=== PATIENT | female | born 1990 | race Caucasian/White ===

== ENCOUNTER → 2018-05-22 19:45 | Outpatient (CLI) | payer OTHER, SELFPAY ==
[2018-05-22 21:35] LABS: Chlamydia Trachomatis by PCR Negative (Negative); Neisserai gonorrhoeae by PCR Negative (Negative); Probe Check PASS; Sample Adequacy Control PASS; Specimen Processing Control PASS
== END ==
PROVIDERS: Referring Provider Nurse Practitioner Women's Health; Visit Provider Nurse Practitioner Women's Health
DX: N76.0 Acute vaginitis (principal); R30.0 Dysuria
CPT/HCPCS: 87070; 87077; 87086; 87106; 87205; 87491; 87591

== ENCOUNTER → 2018-10-14 07:30 | Outpatient (CLI) | payer OTHER, SELFPAY ==
[2018-10-14 09:05] LABS: Anion Gap 6 (5-15); BUN 12 mg/dL (7-18); BUN/Creat Ratio 14.9 RATIO (10-20); Calcium,Total 8.7 mg/dL (8.5-10.1); Chloride 109 mmol/L (98-107); Cholesterol 139 mg/dL (200); Creatinine, Serum 0.81 mg/dL (0.55-1.02); EST Glomerular Filtration Rate 91 mL/min (>60); Est Glom Filt Rate - Afr Amer 111 mL/min (>60); Glucose 87 mg/dL (74-106); High Density Lipoprotein 55 mg/dL; Potassium 3.6 mmol/L (3.5-5.1); Sodium Level 141 mmol/L (136-145); Thyroid Stim Hormone (TSH) 3.72 uIU/mL (0.358-3.74); Triglycerides 53 mg/dL; Very Low Density Lipoprotein 11 mg/dL (5-40)
== END ==
PROVIDERS: Family Provider Family Medicine; PCP Family Medicine; Referring Provider Family Medicine; Visit Provider Family Medicine
DX: Z00.00 Encounter for general adult medical examination without abnormal findings (principal)
CPT/HCPCS: 36415; 80048; 80061; 84443

== ENCOUNTER → 2019-04-25 16:43 | Outpatient (CLI) | payer OTHER, SELFPAY ==
[2019-05-01 16:18] LABS: HPV Reflexed? NOT INDICATED
== END ==
PROVIDERS: Family Provider Family Medicine; PCP Family Medicine; Referring Provider Nurse Practitioner Women's Health; Visit Provider Nurse Practitioner Women's Health
DX: Z12.4 Encounter for screening for malignant neoplasm of cervix (principal)
CPT/HCPCS: 88175; G0145

== ENCOUNTER 2021-10-28 17:10 | Outpatient (CLI) | payer OTHER, SELFPAY ==
[2021-10-28 17:36] LABS: Amphetamine Urine VISTA NEGATIVE (<1000 ng/mL); Barbiturate Urine VISTA NEGATIVE (< 200 ng/mL); Benzodiazepine Urine VISTA NEGATIVE (< 200 ng/mL); Cocaine Urine VISTA NEGATIVE (< 300 ng/mL); Ecstacy Urine VISTA NEGATIVE (< 500 ng/mL); Methadone Urine VISTA NEGATIVE (< 300 ng/mL); PCP Urine VISTA NEGATIVE (< 25 ng/mL); THC Urine VISTA NEGATIVE (< 50 ng/mL); Vista UDS pH Range 6
[2021-10-30 22:07] LABS: Chlamydia By Nucleic Acid AMP Negative (Negative)
[2021-10-30 22:26] LABS: Gonococcus By Nucleic Acid AMP Negative (Negative)
[2021-11-04 09:32] LABS: HPV Reflexed? NOT INDICATED
== END 2021-10-28 23:59 | disposition home or self-care (01) ==
PROVIDERS: PCP Family Medicine; Visit Provider Obstetrics & Gynecology
DX: Z34.00 Encounter for supervision of normal first pregnancy, unspecified trimester (principal)
CPT/HCPCS: 80307; 87086; 87491; 87591; 88175; G0145

== ENCOUNTER 2021-11-07 08:58 | Outpatient (CLI) | payer OTHER, SELFPAY ==
[2021-11-07 09:37] LABS: Absolute Lymphocyte Count 1.81 X10^3/uL (0.83-4.51); Basophil# 0.05 X10^3/uL; Basophil% 0.6 % (0-1); Eosinophils% 1.1 % (0-5); Hematocrit 38.9 % (37-47); Lymphocyte # 1.81 X10^3/ul (0.83-4.51); Lymphocyte % 20.7 % (19-41); Mean Corp Hgb Conc 33.4 g/dL (32-36); Mean Corpuscular Hgb 28.2 pg (27.0-32.0); Mean Corpuscular Volume 84.4 fL (81-99); Mean Platelet Vol. 9.9 fl (6.2-12.0); Monocyte# 0.75 X10^3/uL; Monocyte% 8.6 % (0-10); NRBC Flagged by Analyzer 0 % (0-5); Neutrophil # 6.01 X10^3/uL (2.7-7.7); Neutrophil % 68.8 % (47-70); Platelet Count 333 K/mm3 (150-450); RBC Distribution Width CV 14.5 % (11.6-14.6); RBC Distribution Width SD 43.9 fl (35.1-43.9); Red Blood Count 4.61 M/mm3 (4.2-5.4); White Blood Count 8.7 K/mm3 (4.4-11.0)
[2021-11-07 10:18] LABS: Thyroid Stim Hormone (TSH) 2.22 uIU/mL (0.358-3.74)
[2021-11-09 09:22] LABS: HIV - WCH Non-Reactive (Nonreactive); Hepatitis B Surface Antigen Non-Reactive (Nonreactive); Hepatitis C Antibody Non-Reactive (Nonreactive); Rubella IgG Reactive (Nonreactive); Syphilis Antibodies Non-reactive
== END 2021-11-07 23:59 | disposition home or self-care (01) ==
PROVIDERS: PCP Family Medicine; Visit Provider Obstetrics & Gynecology
DX: Z34.00 Encounter for supervision of normal first pregnancy, unspecified trimester (principal); R94.6 Abnormal results of thyroid function studies
CPT/HCPCS: 36415; 84443; 85025; 86703; 86762; 86780; 86803; 86850; 86900; 86901; 87340

== ENCOUNTER → 2021-12-25 | Outpatient (CLI) | payer OTHER, SELFPAY ==
--- NOTE | 2021-12-25 15:05 | US_ITS ---
EXAM: US FIRST TRIMESTER , TRANSABDOMINAL AND TRANSVAGINAL CLINICAL INDICATION: anatomy TECHNIQUE: Real-time transabdominal and transvaginal obstetrical ultrasound of the maternal pelvis and a first trimester with image documentation. Transvaginal imaging was used for better evaluation of the fetus and adnexa. This report was created using F[employer] report generation technology. COMPARISON: None. FINDINGS: GESTATION: There is an intrauterine gestation. The fetus is in the cephalic position. heart rate of 158 bpm. Gestational age 20 weeks 6 days. ANATOMY: Spine, diaphragm, extremities, stomach, kidneys, bladder, four-chamber heart and three-vessel cord were all visualized. CARMELITA: CARMELITA 05/08/2022. EFW: Estimated weight is 358 g. BPD: Biparietal diameter is 4.8 cm age 20 weeks 3 days, 26th percentile. HC: Head circumference is 17.8 cm age 20 weeks 1 day, 17th percentile. AC: Abdominal circumference is 15.3 cm age 20 weeks 3 days, 31st percentile. FL: Femur length is 3.4 cm age 20 weeks 3 days, 31st percentile. PLACENTA/AMNIOTIC FLUID: The placenta is anterior. UTERUS/CERVIX: The cervix measures 4.9 cm. No myometrial mass. OVARIES: Unremarkable. No mass. FREE FLUID: Largest pocket of fluid is 4.6 x 6.6 cm. US/OB Anatomy Scan IMPRESSION: Intrauterine gestation with an average ultrasound age of 20 weeks 1 day ultrasound estimated due date of 05/13/2022. heart rate is 158 bpm. Electronically Signed: Zack Gutierrez MD at 3:09 EDT ,
== END | disposition home or self-care (01) ==
PROVIDERS: PCP Family Medicine; Referring Provider Obstetrics & Gynecology; Visit Provider Obstetrics & Gynecology
DX: Z34.00 Encounter for supervision of normal first pregnancy, unspecified trimester (principal)
CPT/HCPCS: 76805; 76817

== ENCOUNTER → 2022-02-15 | Outpatient (CLI) | payer OTHER, SELFPAY ==
[2022-02-15 08:22] LABS: Absolute Lymphocyte Count 1.95 X10^3/uL (0.83-4.51); Absolute Neutrophil Count 6.9 X10^3/uL (2.0-7.7); Basophil# 0.05 X10^3/uL; Basophil% 0.5 % (0-1); Eosinophil# 0.27 X10^3/uL; Eosinophils% 2.7 % (0-5); Hematocrit 33.5 % (37-47); Hemoglobin 10.6 g/dL (12.0-15.0); Lymphocyte # 1.95 X10^3/ul (0.83-4.51); Lymphocyte % 19.7 % (19-41); Mean Corp Hgb Conc 31.6 g/dL (32-36); Mean Corpuscular Hgb 29.1 pg (27.0-32.0); Mean Platelet Vol. 9.6 fl (6.2-12.0); Monocyte# 0.74 X10^3/uL; Monocyte% 7.5 % (0-10); NRBC Flagged by Analyzer 0 % (0-5); Neutrophil # 6.86 X10^3/uL (2.7-7.7); Neutrophil % 69.1 % (47-70); Platelet Count 316 K/mm3 (150-450); RBC Distribution Width CV 14.6 % (11.6-14.6); Red Blood Count 3.64 M/mm3 (4.2-5.4); White Blood Count 9.9 K/mm3 (4.4-11.0)
[2022-02-15 08:54] LABS: Glucose Challenge Gest 1H 50g 117 mg/dL (70-140)
== END | disposition home or self-care (01) ==
LOC: LAB 07:47
PROVIDERS: PCP Family Medicine; Referring Provider Obstetrics & Gynecology; Visit Provider Obstetrics & Gynecology
DX: Z34.00 Encounter for supervision of normal first pregnancy, unspecified trimester (principal)
CPT/HCPCS: 36415; 82950; 85025

== ENCOUNTER → 2022-04-06 | Outpatient (CLI) | payer OTHER, SELFPAY ==
[2022-04-06 11:10] LABS: Absolute Lymphocyte Count 1.54 X10^3/uL (0.83-4.51); Absolute Neutrophil Count 6.7 X10^3/uL (2.0-7.7); Basophil# 0.04 X10^3/uL; Basophil% 0.4 % (0-1); Eosinophil# 0.11 X10^3/uL; Eosinophils% 1.2 % (0-5); Hematocrit 38.2 % (37-47); Hemoglobin 12.4 g/dL (12.0-15.0); Lymphocyte # 1.54 X10^3/ul (0.83-4.51); Lymphocyte % 16.6 % (19-41); Mean Corp Hgb Conc 32.5 g/dL (32-36); Mean Corpuscular Hgb 29.9 pg (27.0-32.0); Mean Platelet Vol. 10.2 fl (6.2-12.0); Monocyte# 0.87 X10^3/uL; Monocyte% 9.4 % (0-10); NRBC Flagged by Analyzer 0 % (0-5); Platelet Count 288 K/mm3 (150-450); RBC Distribution Width CV 14.6 % (11.6-14.6); RBC Distribution Width SD 49.1 fl (35.1-43.9); Red Blood Count 4.15 M/mm3 (4.2-5.4); White Blood Count 9.3 K/mm3 (4.4-11.0)
== END | disposition home or self-care (01) ==
LOC: LAB 09:48
PROVIDERS: PCP Family Medicine; Referring Provider Nurse Practitioner Women's Health; Visit Provider Nurse Practitioner Women's Health
DX: D64.9 Anemia, unspecified (principal)
CPT/HCPCS: 36415; 85025

== ENCOUNTER → 2022-04-16 | Outpatient (CLI) | payer OTHER, SELFPAY | END | disposition home or self-care (01) | LOC: LABSPEC 04-19 08:22 | PROVIDERS: PCP Family Medicine; Visit Provider Obstetrics & Gynecology | DX: Z34.00 Encounter for supervision of normal first pregnancy, unspecified trimester (principal) | CPT/HCPCS: 87081 ==

== ENCOUNTER 2022-05-19 19:00 | Inpatient (IN) | payer OTHER, SELFPAY ==
[2022-05-19 19:05] VITALS: BMI 26.9
[2022-05-19 19:16] VITALS: PULSE 101; O2SAT 96
[2022-05-19 19:21] VITALS: BP 111/75; PULSE 81; TEMP 36.3
[2022-05-19 19:22] VITALS: PULSE 78; O2SAT 96
[2022-05-19 19:56] LABS: Absolute Lymphocyte Count 1.66 X10^3/uL (0.83-4.51); Absolute Neutrophil Count 8.4 X10^3/uL (2.0-7.7); Basophil# 0.03 X10^3/uL; Basophil% 0.3 % (0-1); Eosinophil# 0.06 X10^3/uL; Eosinophils% 0.5 % (0-5); Hematocrit 38.9 % (37-47); Hemoglobin 13.1 g/dL (12.0-15.0); Lymphocyte # 1.66 X10^3/ul (0.83-4.51); Lymphocyte % 15.1 % (19-41); Mean Corp Hgb Conc 33.7 g/dL (32-36); Mean Corpuscular Hgb 29.8 pg (27.0-32.0); Mean Corpuscular Volume 88.4 fL (81-99); Mean Platelet Vol. 10.3 fl (6.2-12.0); Monocyte# 0.77 X10^3/uL; NRBC Flagged by Analyzer 0 % (0-5); Neutrophil # 8.41 X10^3/uL (2.7-7.7); Neutrophil % 76.6 % (47-70); Platelet Count 278 K/mm3 (150-450); RBC Distribution Width CV 13.2 % (11.6-14.6); RBC Distribution Width SD 42.7 fl (35.1-43.9)
[2022-05-19] MEDS: Lactated Ringers 1,000 ML 50 ML IV (20:40)
[2022-05-19] MEDS: LACTATED RINGERS 500 ML 999 ML IV (20:40)
[2022-05-19 21:23] VITALS: BP 109/69; PULSE 65; TEMP 35.9
[2022-05-19 21:24] VITALS: PULSE 66; O2SAT 98
[2022-05-19] MEDS: miSOPROStol 25 MCG TABLET PO (21:37)
[2022-05-20] VITALS (48 sets, daily range): BP systolic 85–129; BP diastolic 57–90; PULSE 34–127; RESP 16; TEMP 36.1–36.7; O2SAT 75–100
[2022-05-20] MEDS: miSOPROStol 50 MCG TABLET PO (02:03)
--- NOTE | 2022-05-20 07:42 | HP.PCM.OB_ITS ---
HPI - General General Date of Admission: 05/19/22 HPI Narrative RUTHIE OJEDA, is a 31 F who presents for IOL postdates no vb lof good fm no regular ctx Maternal Data Information CARMELITA Calculator Estimated Delivery Date Method Current WG Current Estimate 05/08/22 Ultrasound #1 41w 5d Other Estimates 05/18/22 LMP (Uncertain) 40w 2d PFSH PFSH Medical History Anemia Home Medications prenat.vits,jose,rnt-fyel-djagx 1 tab PO DAILY 10/19/21 [History Last Taken 05/19/22] iron 1 tablet DAILY anemia 05/19/22 [History Last Taken Unknown] Allergy/AdvReac Type Severity Reaction Status Date / Time No Known Allergies Allergy Verified 05/19/22 19:23 Family History Mother Ovarian cancer Thyroid disorder Surgical History [place] teeth extracted Social History adopted: No household members: spouse current occupational status: employed 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 pets and animals: No Smoking Status: Never smoker alcohol intake: never substance use type: does not use caffeine: Yes (rarely) what type of physical activity do you participate in: none seatbelt use: always do you feel safe at home: Yes additional social history: - [facility] 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 History 1 Elective abortions Hx Para 0 Spontaneous abortions Hx # Term Pregnancies Ectopic pregnancies Hx # Pregnancies Multiple births # of living children Visit Details Expected Delivery Route/Plan Labor Preferences- CB/BF classes: encouraged labor support person: Bryon labor intervention preferences: tub pain management options preferred: epidural if needed cut cord/dad catch: cord : yes PP control planned: discussed discussed possible routes of delivery and associated risks: [] special requests: [] Plans Covid status: unvaccinated Flu vaccine: unvaccinated Tdap vaccine: [] Rhogam: na LARC form signed: yes Problem list reviewed and updated with the most current plan of care details and appropriate orders placed. Relevant counseling for the gestational age provided. Continue routine care and follow up unless otherwise noted in visit notes/problem list details OB Flowsheet Initial Weight: 150 lb Date -?-?-?-?-?-?-?-?-?-?-?-?- EGA Weight BP Urine Prot -?-?-?-?-?-?-?-?-?-?-?-?- Glucose FHR FuHt Pres Dilation -?-?-?-?-?-?-?-?-?-?-?-?- Effaced St Visit Note 10/28/21 -?-?-?-?-?-?-?-?-?-?-?-?- 12w 4d 150 lb 8 oz (+8 oz) 120/80 -?-?-?-?-?-?-?-?-?-?-?-?- 176 -?-?-?-?-?-?-?-?-?-?-?-?- JV- CRL not cons istent with LMP> measuring 12 weeks 4 days CARMELITA 05/0811/27/21 -?-?-?-?-?-?-?-?-?-?-?-?- 16w 6d 154 lb (+4 lb) 102/80 -?-?-?-?-?-?-?-?-?-?-?-?- 150 -?-?-?-?-?-?-?-?-?-?-?-?- SM- no vb crampi ng 12/30/21 -?-?-?-?-?-?-?-?-?-?-?-?- 21w 4d 158 lb 4 oz (+8 lb 4 oz) 120/78 Negative -?-?-?-?-?-?-?-?-?-?-?--?- Negative 155 -?-?-?-?-?-?-?-?-?-?-?-?- JV- normal anato my scan from [facility]. anterior placenta. No complaints today. 01/25/22 -?-?-?-?-?-?-?-?-?--?-?-?- 25w 2d 164 lb 8 oz (+14 lb 8 oz) 110/72 Negative -?-?-?-?-?-?-?-?-?-?-?-?- Negative 150 25 -?-?-?-?-?-?-?-?-?-?-?-?- SM- no vb lof go od fm no regular ctx 02/15/22 -?-?-?-?-?-?-?-?-?-?-?-?- 28w 2d 170 lb 4 oz (+20 lb 4 oz) 114/60 Negative -?-?-?-?-?-?-?-?-?-?-?-?- Negative 152 28 -?-?-?-?-?-?-?-?-?-?-?-?- MH-No VB, LOF or CTX. Good FM. [facility], 28 wk labs. 03/03/22 -?-?-?-?-?-?-?-?-?-?-?-?- 30w 4d 169 lb (+19 lb) 111/73 Negative -?-?-?-?-?-?-?-?-?-?-?-?- Negative 145 30 -?-?-?-?-?-?-?-?-?-?-?-?- JV-no lof, vagin al bleeding, or dec fm. tdap done today. 03/19/22 -?-?-?-?-?-?-?-?-?-?-?-?- 32w 6d 169 lb 6 oz (+19 lb 6 oz) 119/66 Negative -?-?-?-?-?-?-?-?-?-?-?-?- Negative 155 31 Transverse -?-?-?-?-?-?-?-?-?-?-?-?- JV- no lof, vagi nal bleeding, or dec fm moving this weekend. 04/06/22 -?-?-?-?-?-?-?-?-?-?-?-?- 35w 3d 171 lb (+21 lb) 114/62 Negative -?-?-?-?-?-?-?-?-?-?-?-?- Negative 140 34 Transverse -?-?--?-?-?-?-?-?-?-?-?-?- MH-No Vb, LOF. G ood FM. CBC today. 04/16/22 -?-?-?-?-?-?-?-?-?-?-?-?- 36w 6d 170 lb (+20 lb) 110/70 Trace -?-?-?-?-?-?-?-?-?-?-?-?- Negative 145 37 Cephalic 0 -?-?-?-?-?-?-?-?-?-?-?-?- SM- no vb lof go od fm no regular ctx 04/23/22 -?-?-?-?-?-?-?-?-?-?-?-?- 37w 6d 172 lb 8 oz (+22 lb 8 oz) 122/76 Negative -?-?-?-?-?-?-?-?-?-?-?-?- Negative 135 37 Cephalic 0 -?-?-?-?-?-?-?-?-?-?-?-?- JV- pt wants to know if can go to a wedding 2 hrs away next weekend. will play by ear. no lof, vaginal bleeding, or dec fm. 04/29/22 -?-?-?-?-?-?-?-?-?-?-?-?- 38w 5d 173 lb 6 oz (+23 lb 6 oz) 115/73 Negative -?-?-?-?-?-?-?-?-?-?-?-?- Negative 145 37 Cephalic 0 -?-?-?-?-?-?-?-?-?-?-?-?- JV- no lof, vagi nal bleeding, or dec fm. going to weddding 2 hrs away. labor precautions discussed. 05/07/22 -?-?-?-?-?-?-?-?-?-?-?-?- 39w 6d 172 lb 8 oz (+22 lb 8 oz) 115/75 Negative -?-?-?-?-?-?-?-?-?-?-?-?- Negative 155 38 Cephalic 0 -?-?-?-?-?-?-?-?-?-?-?-?- JV- no lof, vagi nal bleeding, or dec fm. pt wants to wait as long as possible for IOL. L&D has next tuesday available for PM induction. 05/14/22 -?-?-?-?-?-?-?-?-?-?-?-?- 40w 6d 174 lb (+24 lb) 124/77 Negative -?-?-?-?-?-?-?-?-?-?-?-?- Negative 150 39 Cephalic 0 -?-?-?-?-?-?-?-?-?-?-?-?- JV- NST reactive . iol set for tuesday. labor precautions discussed. 05/19/22 -?-?-?-?-?-?-?-?-?-?-?-?- 41w 4d 171 lb 11.841 oz (+21 lb 11.841 oz) 111/75 109/69 104/71 114/70 -?-?-?-?-?-?-?-?-?-?-?-?- -?-?-?-?-?-?-?-?-?-?-?-?- NST FHR Rate Baby A Baseline: 130 Variability:: Moderate Accelerations:: 15 x 15 Decelerations:: None NST Reactive:: Yes FHR Category:: Category I Uterine Activity:: irregular ROS Constitutional Constitutional: Reports systems reviewed and no addt'l complaints, except as documented Eyes Eyes: Denies change in vision ENT HEENT: Reports systems reviewed and no addt'l complaints, except as documented; Denies headache(s) Cardiovascular Cardiovascular: Reports systems reviewed and no addt'l complaints, except as documented; Denies chest pain or dyspnea Respiratory/Chest Respiratory/Chest: Reports systems reviewed and no addt'l complaints, except as documented Gastrointestinal Gastrointestinal: Reports systems reviewed and no addt'l complaints, except as documented; Denies abdominal pain Genitourinary Genitourinary: Reports systems reviewed and no addt'l complaints, except as documented, contractions Details: present (irregular) and movement Details: present; Denies dysuria or genital lesions Musculoskeletal Musculoskeletal: Reports systems reviewed and no addt'l complaints, except as documented Neurologic Neurologic: Reports systems reviewed and no addt'l complaints, except as documented Endocrine Endocrinology: Reports systems reviewed and no addt'l complaints, except as documented Vital Signs Vital Signs Vital Signs: 05/19/22 19:16 05/19/22 19:16 05/19/22 19:21 Temperature Temperature Source Pulse Rate 101 H Blood Pressure 111/75 BP Systolic 111 BP Diastolic 75 Pulse Ox 96 05/19/22 19:21 05/19/22 19:22 05/19/22 19:22 Temperature Temperature Source Pulse Rate 81 78 Blood Pressure BP Systolic BP Diastolic Pulse Ox 96 05/19/22 21:23 05/19/22 21:23 05/19/22 21:24 Temperature Temperature Source Pulse Rate 65 66 Blood Pressure 109/69 BP Systolic 109 BP Diastolic 69 Pulse Ox 05/19/22 21:24 05/19/22 21:23 05/19/22 21:23 Temperature 96.7 F L Temperature Source Temporal Pulse Rate Blood Pressure BP Systolic BP Diastolic Pulse Ox 98 05/19/22 19:21 05/19/22 19:21 05/20/22 01:29 Temperature 97.3 F L Temperature Source Temporal Pulse Rate Blood Pressure 104/71 BP Systolic 104 BP Diastolic 71 Pulse Ox 05/20/22 01:29 05/20/22 01:29 05/20/22 01:29 Temperature 97.0 F L Temperature Source Temporal Pulse Rate 102 H Blood Pressure BP Systolic BP Diastolic Pulse Ox 05/20/22 05:18 05/20/22 05:18 05/20/22 05:18 Temperature Temperature Source Temporal Pulse Rate 64 Blood Pressure 114/70 BP Systolic 114 BP Diastolic 70 Pulse Ox 05/20/22 05:18 Temperature 97.0 F L Temperature Source Pulse Rate Blood Pressure BP Systolic BP Diastolic Pulse Ox Weight Weight: 171 lb 11.841 oz Body Mass Index (BMI) 26.9 Physical Exam Const alert, oriented x3, no apparent distress and healthy appearing HEENT normocephalic and moist oral mucous membranes Head and Scalp: atraumatic Neck full ROM, no lymphadenopathy, supple and thyroid normal General: trachea midline Lymph Lymphatic: no lymphadenopathy noted Chest inspection of chest normal Resp normal respiratory effort Cardio regular rate GI normal to inspection, nondistended, normoactive bowel sounds, soft to palpation and non-tender Inspection: gravid external exam normal Manual OB Exam: estimated gestational size appropriate, presentation cephalic, dilated, effaced and station Extremity normal to inspection General Extremity: Negative for edema Skin no rashes or lesions noted Neuro no focal motor deficits and deep tendon reflexes 2+ bilaterally Motor Exam: strength 5/5 throughout and clonus absent Psych mental status grossly normal Labs Labs Labs: Blood Type A POSITIVE Antibody Screen NEGATIVE Hct 38.9 % (37-47) Hgb 13.1 g/dL (12.0-15.0) Obstetrics US Syphilis Total Ab Non-reactive Rubella IgG Antibody Reactive (Nonreactive) Hep Bs Antigen Non-Reactive (Nonreactive) Chlamydia DNA (MENG) Negative (Negative) Neisseria gonorrhoeae DNA (MENG) Negative (Negative) HIV 1&2 Antibody Non-Reactive (Nonreactive) Glucose 1 Hr 50 gm 117 mg/dL (70-140) Miscellaneous Test Assessment & Plan (1) Anemia: COMMENT: iron supplement (2) : QUALIFIERS: Weeks of gestation: 40 weeks Qualified Code(s): Z3A .40 - 40 weeks gestation of COMMENT: GBS neg. anatomy nl, Discussed ntd, genetic, and carrier screen. Pt has declined testing (3) Supervision of normal first : COMMENT: PRR CARMELITA: 05/08/22 girl Spouse: Rodrigo Plan for IOL between 41-42 weeks cytotec induction. (on for tuesday pm at 7:00 05/19) (4) Post term at 41 weeks gestation: (5) Encounter for induction of labor: PLAN: Plan Patient presents IOL, plan management for with cytotec and now pit and fb placed. Pain management: plans epidural. GBS negative. Management of any complications: none I have reviewed the [facility] and made any clinically relevant updates.
[2022-05-20] MEDS: 0.9% Normal Saline Single 100 ML IV.SOLN. INTRA-UTER (07:50)
[2022-05-20] MEDS: Oxytocin 15 Units/NS 250ml 15 UNITS/250 ML IV.SOLN 2 UNITS IV (10:29)
[2022-05-20] MEDS: LACTATED RINGERS 500 ML 999 ML IV (14:40)
[2022-05-20] MEDS: fentaNYL-bupivacaine (epidural) 100 ML BAG EPIDURAL (15:10)
[2022-05-20] MEDS: Lactated Ringers 1,000 ML 50 ML IV (17:58)
--- NOTE | 2022-05-20 18:23 | EX.PCM.OBRPT ---
Assessment & Plan (1) Encounter for induction of labor: (2) Post term at 41 weeks gestation: (3) : QUALIFIERS: Weeks of gestation: 40 weeks Qualified Code(s): Z3A.40 - 40 weeks gestation of COMMENT: GBS neg. anatomy nl, Discussed ntd, genetic, and carrier screen. Pt has declined testing (4) Supervision of normal first : COMMENT: PRR CARMELITA: 05/08/[birth year] girl Spouse: Rodrigo Plan for IOL between 41-42 weeks cytotec induction. (on for tuesday pm at 7:00 05/19) (5) Anemia: COMMENT: iron supplement (6) Vaginal delivery: COMMENT: SM IOL 41 postdates girl Shawna Maternal Data Information CARMELITA Calculator Estimated Delivery Date Method Current WG Current Estimate 05/08/22 Ultrasound #1 41w 5d Other Estimates 05/18/22 LMP (Uncertain) 40w 2d Vaginal Delivery Operative Information Date of Procedure: 05/20/22 Pre-Operative Diagnosis: IOL postdates Post-Operative Diagnosis: same Surgery / Procedure Performed: Spontaneous Vaginal Delivery Type of Anesthesia: Epidural Special Medications: none Estimated Blood Loss: 300 Fluids Replaced: crystalloid Findings Description of Procedure: Patient began pushing and delivered the head in the ALEKSANDRA presentation. The head was delivered atraumatically nc x 1 delivered through. The anterior and posterior shoulders delivered without complication followed by the rest of the and the infant was placed on the maternal abdomen. Delayed cord clamping was employed for approximately 60 seconds. Cord was clamped and cut and gentle traction was applied to the cord and the placenta delivered spontaneously immediately following it was noted to be intact with three-vessel cord. The perineum and vagina were inspected and noted to have a second degree laceration repaired in the usual fashion with 3-0 rapide. EBL was 300. Patient and tolerated delivery well. Presentation: ALEKSANDRA Amniotic Membrane Rupture Type: Spontaneous Amniotic Fluid Description: Clear Placental Delivery Description: Spontaneous Placenta Disposition: [facility] Cord Vessel Description: 3 Vessels Cord Entanglement: Around neck x 1, loose Infant A Gender: Female Delayed Cord Clamping: Yes Post Vaginal Delivery Medications Given After Delivery: IV Pitocin Episiotomy Description: None Laceration: Perineal Extension/lac and 2nd degree Complication Complications: None Procedures Urinary/Genital [id number]: [id number] Vaginal Delivery [facility]
--- NOTE | 2022-05-20 18:28 | DCINST_ITS ---
Discharge Instructions Diet Discharge Diet: No restrictions Activity Discharge Activity: Return to Normal Activity, May Drive, May Shower and May Take a Tub Bath (in 4 weeks) May resume sexual activity in: 6-8 weeks (after seen by OB provider) Weight Bearing Status: Full weight bearing Lifting Restrictions: none Dressing / Incision Call your doctor if you observe: Fever of 101 or Higher, Inability to urinate, Using more than 1 pad per hour (for more than 2 hours in a row or more), Shortness of breath, Dizziness, Chest pain and - (headache not controlled with tylenol, change in vision) Follow Up Care When: in 6 weeks for visit, call the office to make the appointment. If you had elevated blood pressures call the office to be seen within 1 week. Test Results: Test results from this visit will be discussed in further detail at your follow- up appointment, if applicable. Discharge Plan Admission Admit Date/Time: 05/19/22 19:00 Attending Provider: Loretta Chand Primary Care Provider: Vinny Cantu Discharge Orders/Prescriptions Prescriptions: No Action prenat.vits,jose,eqd-jejc-maivb Tablet 1 tab PO DAILY iron 1 tablet DAILY Referrals / Follow Up: Vinny Cantu MD [Primary Care Provider] - Disposition Disposition (needs filled in before D/C Order can be placed): Home, Self Care
[2022-05-20] MEDS: Oxytocin 15 Units/NS 250ml 15 UNITS/250 ML IV.SOLN 83 UNITS IV (19:28)
[2022-05-20] MEDS: 0.9% Saline Lock 10 ML Syringe IV (20:24)
[2022-05-20] MEDS: Acetaminophen 500 MG Tablet 1000 MG PO (20:25)
[2022-05-20] MEDS: Benzocaine/Lanolin/Aloe Vera 1 SPRAY EACH TOPICAL (20:25)
--- NOTE | 2022-05-20 21:00 | NURSING ---
correa cath removed at delivery time of 1741. this RN was informed of this during bedside report. pt aware of need for two voids following catheter removal.
[2022-05-21 04:03] VITALS: BP 125/79; PULSE 78; RESP 16; TEMP 36.7
[2022-05-21] MEDS: Naproxen 500 MG Tablet PO (06:36)
--- NOTE | 2022-05-21 08:09 | PCM.PN.OB ---
Subjective Subjective Patient doing well without complaints. Tolerating PO. Ambulating and voiding without difficulty. Feeding well. Denies chest pain, shortness of breath, calf pain/swelling, fevers, chills, lightheadedness. Objective Data Objective Data Vital Signs: Vital Signs Temp Pulse Resp BP Pulse Ox O2 Del Method 98.1 F 78 16 125/79 H 99 Room Air 05/21/22 04:03 05/21/22 04:03 05/21/22 04:03 05/21/22 04:03 05/20/22 20:18 05/21/22 04:03 Oxygen Delivery Method Room Air Weight: 171 lb 11.841 oz Body Mass Index (BMI) 26.9 Intake & Output: Intake and Output for Last 24 Hours 05/19/22 05/20/22 05/21/22 23:59 23:59 23:59 Intake Total 500 / 500 1634.74 / 1634.74 Output Total 850 / 850 Balance 500 / 500 1634.74 / 1634.74 -850 / -850 Lab / Micro Data Attestation: I reviewed the patient's lab results. Result Diagrams: 05/19/22 19:40 Physical Exam Narrative pt is seen lying in bed, holding infant. Const General Appearance: cooperative, comfortable and well kempt Neck full ROM GI normal to inspection, nondistended, normoactive bowel sounds Palpation: soft and other Other Details: fundus at u, firm Speculum Exam - Vagina: vaginal bleeding small/minimal (normal lochia ) Extremity General Extremity: Negative for edema Psych mental status grossly normal and thought process normal Appearance: grossly normal Assessment & Plan (1) Routine follow-up: PLAN: s/p PPD # 1 1. routine post delivery care 2. breast feeding- support given 3. rh positive 4. rubella immune PLAN: Plan d/c home this evening
[2022-05-21 08:30] VITALS: BP 105/63; PULSE 84; RESP 16; TEMP 37.1; O2SAT 97
[2022-05-21 13:02] VITALS: BP 107/52; PULSE 84; RESP 18; TEMP 36.9; O2SAT 97
[2022-05-21] MEDS: Acetaminophen 500 MG Tablet 1000 MG PO (14:01)
[2022-05-21 15:39] VITALS: BP 103/64; PULSE 103; RESP 16; TEMP 36.8; O2SAT 96
== END 2022-05-21 19:00 | disposition home or self-care (01) | DRG 807 ==
PROVIDERS: Obstetrics & Gynecology; Admitting Provider Obstetrics & Gynecology; PCP Family Medicine; Visit Provider Obstetrics & Gynecology
DX: O48.0 Post-term pregnancy (principal); Z37.0 Single live birth; D64.9 Anemia, unspecified; O70.1 Second degree perineal laceration during delivery; O99.02 Anemia complicating childbirth; Z3A.41 41 weeks gestation of pregnancy; Z28.310 Unvaccinated for COVID-19; O69.81X0 Labor and delivery complicated by cord around neck, without compression, not applicable or unspecified
CPT/HCPCS: 59025; 59050; 85025; 86850; 86900; 86901; 99218; J7120; A4216; G0378

== ENCOUNTER → 2024-01-23 | Outpatient (CLI) | payer OTHER, SELFPAY ==
[2024-01-25 21:07] LABS: Chlamydia By Nucleic Acid AMP Negative (Negative); Gonococcus By Nucleic Acid AMP Negative (Negative)
== END | disposition home or self-care (01) ==
PROVIDERS: PCP Family Medicine; Visit Provider Obstetrics & Gynecology
DX: Z34.90 Encounter for supervision of normal pregnancy, unspecified, unspecified trimester (principal); Z3A.00 Weeks of gestation of pregnancy not specified
CPT/HCPCS: 87086; 87491; 87591

== ENCOUNTER → 2024-02-16 | Outpatient (CLI) | payer OTHER, SELFPAY ==
[2024-02-16 16:22] LABS: Absolute Lymphocyte Count 2.25 X10^3/uL (0.83-4.51); Absolute Neutrophil Count 5.6 X10^3/uL (2.0-7.7); Basophil# 0.05 X10^3/uL; Basophil% 0.6 % (0-1); Eosinophil# 0.15 X10^3/uL; Eosinophils% 1.7 % (0-5); Hematocrit 40.8 % (37-47); Hemoglobin 13.7 g/dL (12.0-15.0); Lymphocyte # 2.25 X10^3/ul (0.83-4.51); Lymphocyte % 25.5 % (19-41); Mean Corp Hgb Conc 33.6 g/dL (32-36); Mean Corpuscular Hgb 28.5 pg (27.0-32.0); Mean Corpuscular Volume 84.8 fL (81-99); Mean Platelet Vol. 9.8 fl (6.2-12.0); Monocyte# 0.73 X10^3/uL; Monocyte% 8.3 % (0-10); NRBC Flagged by Analyzer 0 % (0-5); Neutrophil # 5.63 X10^3/uL (2.7-7.7); Neutrophil % 63.6 % (47-70); Platelet Count 282 K/mm3 (150-450); RBC Distribution Width CV 13.3 % (11.6-14.6); RBC Distribution Width SD 41.4 fl (35.1-43.9); Red Blood Count 4.81 M/mm3 (4.2-5.4); White Blood Count 8.8 K/mm3 (4.4-11.0)
[2024-02-16 17:29] LABS: HIV - WCH Non-Reactive (Nonreactive); Hepatitis B Surface Antigen Non-Reactive (Nonreactive); Hepatitis C Antibody Non-Reactive (Nonreactive); Rubella IgG Reactive (Nonreactive); Syphilis Antibodies Non-reactive
== END | disposition home or self-care (01) ==
LOC: LAB 15:32
PROVIDERS: PCP Family Medicine; Referring Provider Obstetrics & Gynecology; Visit Provider Obstetrics & Gynecology
DX: Z34.90 Encounter for supervision of normal pregnancy, unspecified, unspecified trimester (principal)
CPT/HCPCS: 36415; 85025; 86703; 86762; 86780; 86803; 86850; 86900; 86901; 87340

== ENCOUNTER → 2024-04-03 | Outpatient (CLI) | payer OTHER, SELFPAY ==
--- NOTE | 2024-04-03 15:32 | US_ITS ---
STUDY: SECOND AND THIRD TRIMESTER OBSTETRICAL ULTRASOUND REASON FOR EXAM: Female, 33 years old Anatomy LMP: Unknown. TECHNIQUE: Transabdominal and Transvaginal TECHNICAL QUALITY: Adequate. PRIOR ULTRASOUND: None. FINDINGS: There is a single intrauterine fetus. The fetus is in a variable presentation. There is demonstrated cardiac activity with a heart rate of 167 bpm. There is a normal amniotic fluid volume. The largest amniotic fluid pocket measures 6.3 cm. The amniotic fluid index (YOHANA) is within normal limits. The placenta is fundal and posterior in location. There are Grade 0 placental changes. The cervix measures 4.4 cm in length. The bilateral adnexal regions are normal. BIOMETRY: BPD: 4.56 cm: 19 weeks, 5 days HC: 17.71 cm: 20 weeks, 1 days AC: 15.48 cm: 20 weeks, 5 days FL: 3.34 cm: 20 weeks, 3 days CI: 74.3% FL/BPD: 73.4% FL/HC: 18.9% FL/AC: 21.6% HC/AC: 1.14 age by current US: 20 weeks, 0 days. CARMELITA by current US: August 21, 2024. Estimated weight: 357 grams, +/- 54 grams, 40 %. Age by LMP: 20 weeks, 4 days. CARMELITA by LMP: August 17, 2024. The left ovary is enlarged measuring 8.2 cm x 5.3 cm x 3.3 cm. Within it, there is a 7.2 cm by 4.5 cm x 3.4 cm complex cyst. Follow-up recommended. ANATOMY: Gender: Female Cranium: Normal lateral ventricles. Normal choroid plexus. Normal cerebellum. Normal cisterna magna. Normal face, nose and lips. Chest: Normal 4-chamber heart. Abdomen/Pelvis: Normal diaphragm. Normal stomach. Normal abdominal wall. The umbilical cord is at 1.4 cm from the placental edge. Normal 3 vessel cord. Normal kidneys. Normal bladder. Spine: Normal cervical spine. Normal thoracic spine. Normal lumbar spine. Normal sacrum. Extremities: Normal bilateral upper extremities. Normal bilateral lower extremities. US/OB Anatomy w/ Transvaginal IMPRESSION: Single live intrauterine gestation with a mean gestational age of 20 weeks. Complex cyst in the right ovary as described. Follow-up recommended. The umbilical cord is at 1.4 cm from the placental edge. Electronically Signed: Johann Turner MD at 9:33 EDT ,
== END | disposition home or self-care (01) ==
LOC: US 15:30
PROVIDERS: PCP Family Medicine; Referring Provider Advanced Practice Midwife; Visit Provider Advanced Practice Midwife
DX: Z34.90 Encounter for supervision of normal pregnancy, unspecified, unspecified trimester (principal); Z3A.15 15 weeks gestation of pregnancy
CPT/HCPCS: 76805; 76817

== ENCOUNTER → 2024-05-22 | Outpatient (CLI) | payer OTHER, SELFPAY ==
[2024-05-22 08:47] LABS: Absolute Lymphocyte Count 2.02 X10^3/uL (0.83-4.51); Absolute Neutrophil Count 6.2 X10^3/uL (2.0-7.7); Basophil# 0.04 X10^3/uL; Basophil% 0.4 % (0-1); Eosinophils% 2.2 % (0-5); Hematocrit 34.6 % (37-47); Hemoglobin 11.2 g/dL (12.0-15.0); Lymphocyte # 2.02 X10^3/ul (0.83-4.51); Lymphocyte % 22.1 % (19-41); Mean Corp Hgb Conc 32.4 g/dL (32-36); Mean Corpuscular Hgb 29.4 pg (27.0-32.0); Mean Corpuscular Volume 90.8 fL (81-99); Mean Platelet Vol. 9.6 fl (6.2-12.0); Monocyte# 0.64 X10^3/uL; NRBC Flagged by Analyzer 0 % (0-5); Neutrophil # 6.21 X10^3/uL (2.7-7.7); Neutrophil % 67.9 % (47-70); Platelet Count 302 K/mm3 (150-450); RBC Distribution Width CV 13.2 % (11.6-14.6); RBC Distribution Width SD 43.1 fl (35.1-43.9); Red Blood Count 3.81 M/mm3 (4.2-5.4); White Blood Count 9.2 K/mm3 (4.4-11.0)
[2024-05-22 09:00] LABS: Glucose Challenge Gest 1H 50g 93 mg/dL (70-140)
[2024-05-22 09:33] LABS: HIV - WCH Non-Reactive (Nonreactive); Syphilis Antibodies Non-reactive
== END | disposition home or self-care (01) ==
LOC: LAB 08:06
PROVIDERS: PCP Family Medicine; Referring Provider Obstetrics & Gynecology; Visit Provider Obstetrics & Gynecology
DX: Z34.90 Encounter for supervision of normal pregnancy, unspecified, unspecified trimester (principal)
CPT/HCPCS: 36415; 82950; 85025; 86703; 86780

== ENCOUNTER → 2024-06-12 | Outpatient (CLI) | payer OTHER, SELFPAY | END | disposition home or self-care (01) | LOC: US 15:29 | PROVIDERS: PCP Family Medicine; Referring Provider Obstetrics & Gynecology; Visit Provider Obstetrics & Gynecology | DX: O34.82 Maternal care for other abnormalities of pelvic organs, second trimester (principal); N83.209 Unspecified ovarian cyst, unspecified side; Z3A.23 23 weeks gestation of pregnancy | CPT/HCPCS: 76816 ==

== ENCOUNTER → 2024-07-19 | Outpatient (CLI) | payer OTHER, SELFPAY ==
--- NOTE | 2024-07-19 15:53 | US_ITS ---
STUDY: SECOND AND THIRD TRIMESTER OBSTETRICAL ULTRASOUND - LIMITED REASON FOR EXAM: Female, 33 years old growth for marginal cord insertion and ovarian cys LMP: 11/19/2023 PRIOR ULTRASOUND: Prior studies dated: 06/12/2024 TECHNIQUE: Transabdominal and Transvaginal TECHNICAL QUALITY: Adequate. FINDINGS: There is a single intrauterine fetus. The fetus is in a cephalic presentation. There is demonstrated cardiac activity with a heart rate of 145 bpm. There is a normal amniotic fluid volume. The largest amniotic fluid pocket measures 5.2 cm. The amniotic fluid index (YOHANA) is 14.3 cm. The placenta is posterior in location and is not low lying. There are Grade 2 placental changes. The cervix is not visualized. BIOMETRY: BPD: 9 cm: 36 weeks, 2 days HC: 10.8 cm: 34 weeks, 4 days AC: 32 cm: 35 weeks, 6 days FL: 7 cm: 35 weeks, 5 days Age by LMP: 35 weeks, 6 days. CARMELITA by LMP: 08/17/2024. age by current US: 35 weeks, 4 days. CARMELITA by current US: 08/19/2024. Estimated weight: 2035 grams, +/- 425 grams, 56 percentile. IMPRESSION: Single live intrauterine fetus in cephalic presentation with an estimated gestational age of 35 weeks and 4 days. Electronically Signed: Angel Wood MD at 16:18 EST , STUDY: SECOND AND THIRD TRIMESTER OBSTETRICAL ULTRASOUND - LIMITED REASON FOR EXAM: Female, 33 years old growth for marginal cord insertion and ovarian cys LMP: 11/19/2023 PRIOR ULTRASOUND: Prior studies dated: 06/12/2024 TECHNIQUE: Transabdominal and Transvaginal TECHNICAL QUALITY: Adequate. FINDINGS: There is a single intrauterine fetus. The fetus is in a cephalic presentation. There is demonstrated cardiac activity with a heart rate of 145 bpm. There is a normal amniotic fluid volume. The largest amniotic fluid pocket measures 5.2 cm. The amniotic fluid index (YOHANA) is 14.3 cm. The placenta is posterior in location and is not low lying. There are Grade 2 placental changes. The cervix is not visualized. BIOMETRY: BPD: 9 cm: 36 weeks, 2 days HC: 10.8 cm: 34 weeks, 4 days AC: 32 cm: 35 weeks, 6 days FL: 7 cm: 35 weeks, 5 days Age by LMP: 35 weeks, 6 days. CARMELITA by LMP: 08/17/2024. age by current US: 35 weeks, 4 days. CARMELITA by current US: 08/19/2024. Estimated weight: 2035 grams, +/- 425 grams, 56 percentile. US/OB Limited With Biometrics IMPRESSION: Single live intrauterine fetus in cephalic presentation with an estimated gestational age of 35 weeks and 4 days. Electronically Signed: Angel Wood MD at 16:18 [facility] ,
== END | disposition home or self-care (01) ==
LOC: US 15:52
PROVIDERS: PCP Family Medicine; Referring Provider Obstetrics & Gynecology; Visit Provider Obstetrics & Gynecology
DX: O34.83 Maternal care for other abnormalities of pelvic organs, third trimester (principal); N83.209 Unspecified ovarian cyst, unspecified side; Z3A.35 35 weeks gestation of pregnancy
CPT/HCPCS: 76816

== ENCOUNTER → 2024-07-24 | Outpatient (CLI) | payer OTHER, SELFPAY | END | disposition home or self-care (01) | LOC: LABSPEC 11:26 | PROVIDERS: PCP Family Medicine; Referring Provider Obstetrics & Gynecology; Visit Provider Obstetrics & Gynecology | DX: Z34.82 Encounter for supervision of other normal pregnancy, second trimester (principal) | CPT/HCPCS: 87081 ==

== ENCOUNTER 2024-08-20 00:50 | Inpatient (IN) | payer OTHER, SELFPAY ==
[2024-08-20] VITALS (34 sets, daily range): BP systolic 98–130; BP diastolic 61–87; PULSE 51–229; RESP 16–18; TEMP 35.6–37; O2SAT 80–100; BMI 27.1
[2024-08-20 01:03] LABS: ROM Internal Control Test YES-OK TO RESULT pt. (Internal QC); ROM Patient Test POSITIVE (Negative); Record Kit Lot#, ROM+ K2451
[2024-08-20 01:17] LABS: Absolute Lymphocyte Count 2.53 X10^3/uL (0.83-4.51); Basophil# 0.05 X10^3/uL; Basophil% 0.5 % (0-1); Eosinophils% 1.1 % (0-5); Hematocrit 30.6 % (37-47); Hemoglobin 9.8 g/dL (12.0-15.0); Lymphocyte # 2.53 X10^3/ul (0.83-4.51); Lymphocyte % 26.9 % (19-41); Mean Corpuscular Hgb 25.7 pg (27.0-32.0); Mean Corpuscular Volume 80.3 fL (81-99); Mean Platelet Vol. 10.9 fl (6.2-12.0); Monocyte# 0.73 X10^3/uL; Monocyte% 7.8 % (0-10); NRBC Flagged by Analyzer 0 % (0-5); Neutrophil # 5.96 X10^3/uL (2.7-7.7); Neutrophil % 63.4 % (47-70); Platelet Count 265 K/mm3 (150-450); RBC Distribution Width CV 14.5 % (11.6-14.6); RBC Distribution Width SD 41.9 fl (35.1-43.9); Red Blood Count 3.81 M/mm3 (4.2-5.4); White Blood Count 9.4 K/mm3 (4.4-11.0)
--- NOTE | 2024-08-20 02:15 | NURSING ---
marginal cord insertion, decision made to keep pt on FHR monitor.
[2024-08-20 02:24] LABS: Syphilis Antibodies Non-reactive
[2024-08-20] MEDS: Lactated Ringers 1,000 ML 999 ML IV (02:40)
[2024-08-20] MEDS: Lidocaine 1% (20 ml mdv) 20 ML Vial INFILT (03:20)
[2024-08-20] MEDS: Oxytocin 15 Units/NS 250ml 15 UNITS/250 ML IV.SOLN 334 UNITS IV (03:30)
--- NOTE | 2024-08-20 03:42 | HP.PCM.OB_ITS ---
HPI - General General Date of Admission: 08/20/24 HPI Narrative RUTHIE OJEDA, is a 33 y/o @ 40 weeks 3 days who presents to L&D in active labor and SROM. She was found to be 6 cm upon arrival. Patient declines epidural. Maternal Data Information CARMELITA Calculator Estimated Delivery Date Method Current WG Current Estimate 08/17/24 LMP (Certain) 40w 3d Other Estimates 08/15/24 Ultrasound #1 40w 5d PFSH PFSH Medical History (Updated 08/20/24 @ 01:15 by Deena Jimenez) Left ovarian cyst Anemia Home Medications ?Medication ?Instructions ?Recorded ?Last Taken ?Type vits no.126-ferrous fum 1 tab PO DAILY 01/20/24 08/19/24 History 28 mg iron-folic acid 800 mcg tablet (Classic ) Allergy/AdvReac Type Severity Reaction Status Date / Time No Known Allergies Allergy Verified 08/20/24 01:05 Family History Mother Ovarian cancer Thyroid disorder Surgical History [place] teeth extracted Social History adopted: No household members: spouse and children number of children: 1 current occupational status: unemployed 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 current occupational exposures/hazards: No pets and animals: No history of recent travel: No sexually active: Yes Smoking Status: Never smoker alcohol intake: never substance use type: does not use well-balanced diet: daily or most days caffeine: Yes (rarely) eating out: 1-3 times/week during the past year weight has: remained stable what type of physical activity do you participate in: bicycling jung/sikhism: Sikhism seatbelt use: always do you feel safe at home: Yes additional social history: - 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 Date Name GA/Weeks Outcome Route Bth Weight Infant Gen Labor Lgth Anesthesia Del Locatn Provider FOB 05/20/22 Shawna 41 live - full term 7lbs 6oz Female ep idural [facility] Loretta Wallace Delivery Date: 05/20/22 Last Updated by: Felisa Dan see problem list for complications, nd sm 41 iol postdates girl shawna. Visit Details Expected Delivery Route/Plan Labor Preferences- CB/BF classes: no labor support person: Bryon labor intervention preferences: [] pain management options preferred: epidural cut cord/dad catch: no : yes PP control planned: discussed discussed possible routes of delivery and associated risks: [] special requests: [] Plans Covid status: [] Flu vaccine: declines Tdap vaccine: declines Rhogam: NA LARC form signed: yes Problem list reviewed and updated with the most current plan of care details and appropriate orders placed. Relevant counseling for the gestational age provided. Continue routine care and follow up unless otherwise noted in visit notes/problem list details OB Flowsheet Initial Weight: Not Recorded Date -?-?-?-?-?-?-?-?-?-?-?-?- EGA Weight BP Urine Prot -?-?-?-?-?-?-?-?-?-?-?-?- Glucose FHR FuHt Pres Dilation -?-?-?-?-?-?-?-?-?-?-?-?- Effaced St Visit Note 01/23/24 -?-?-?-?-?-?-?-?-?-?-?-?- 10w 3d 139 lb 120/70 -?-?-?-?-?-?-?-?-?-?-?-?- 175 -?-?-?-?-?-?-?-?-?-?-?-?- JV- CRL consiste nt with LMP. Declines NIPT. 02/27/24 -?-?-?-?-?-?-?-?-?-?-?-?- 15w 3d 138 lb 6 oz 108/66 Nega tive -?-?-?-?-?-?-?-?-?-?-?-?- Negative 165 -?-?-?-?-?-?-?-?-?-?-?-?- KW- no vb/crampi ng. US ordered. 03/27/24 -?-?-?-?-?-?-?-?-?-?-?-?- 19w 4d 146 lb 120/65 Negative -?-?-?-?-?-?-?-?-?-?-?-?- Negative 150 -?-?-?-?-?-?-?-?-?-?-?-?- SM- no vb lof go od fm no regular ctx 04/24/24 -?-?-?-?-?-?-?-?-?-?-?-?- 23w 4d 150 lb 103/59 Negative -?-?-?-?-?-?-?-?-?-?-?-?- Negative 155 -?-?-?-?-?-?-?-?-?-?-?-?- SM- no vb lof go od fm n oregualr ctx, repeat US to check baby and ovarian cyst in mid third trimester 05/22/24 -?-?-?-?-?-?-?-?-?-?-?-?- 27w 4d 155 lb 4 oz 104/62 Nega tive -?-?-?-?-?-?-?-?-?-?-?-?- Negative 145 27 -?-?-?-?-?-?-?-?-?-?-?-?- MH-No VB, LOF or cramping. Good FM. Declines flu. Larc done. Growth US ordered 06/04/24 -?-?-?-?-?-?-?-?-?-?-?-?- 29w 3d 157 lb 6 oz 104/66 Nega tive -?-?-?-?-?-?-?-?-?-?-?-?- Negative 158 29 -?-?-?-?-?-?-?-?-?-?-?-?- MH-No VB, LOF, G ood FM. Denies concerns. Growth US next week 06/19/24 -?-?-?-?-?-?-?-?-?-?-?-?- 31w 4d 160 lb 112/69 Negative -?-?-?-?-?-?-?-?-?-?-?-?- Negative 164 32 -?-?-?-?-?-?-?-?-?-?-?-?- JV- normal growt h. ovarian cyst is now simple and smaller. rpt growth in 3 weeks from now. no complaints 07/03/24 -?-?-?-?-?-?-?-?-?-?-?-?- 33w 4d 165 lb 111/71 Trace -?-?-?-?-?-?-?-?-?-?-?-?- Negative 145 34 -?-?-?-?-?-?-?-?-?-?-?-?- KW- growth US re viewed. requesting to have one more US due to cost if possible. will get at 35 weeks. good fm. no concerns 07/17/24 -?-?-?-?-?-?-?-?-?-?-?-?- 35w 4d 165 lb 113/68 Negative -?-?-?-?-?-?-?-?-?-?-?-?- Negative 152 35 -?-?-?-?-?-?-?-?-?-?-?-?- JV- no lof, vagi nal bleeding, or dec fm. no complaints. has growth scan on . 07/24/24 -?-?-?-?-?-?-?-?-?-?-?-?- 36w 4d 169 lb 114/75 Negative -?-?-?-?-?-?-?-?-?--?-?-?- Negative 145 36 -?-?-?-?-?-?-?-?-?-?-?-?- SM- no vb lof go od fm no regular ctx gbs collected 07/31/24 -?-?-?-?-?-?-?-?-?-?-?-?- 37w 4d Negative -?-?-?-?-?-?-?-?-?-?-?-?- Negative 150 37 Cephalic -?-?-?-?-?-?-?-?-?-?-?-?- KW-no vb/lof/ctx . good fm. no concerns today. GBS neg 08/14/24 -?-?-?-?-?-?-?-?-?-?-?-?- 39w 4d 172 lb 105/69 Negative -?-?-?-?-?-?-?-?-?-?-?-?- Negative 145 39 Cephalic 4 -?-?-?-?-?-?-?-?-?-?-?-?- 70 -1 Sm- no vb lof good fm no reuglar ctx ROS Constitutional Constitutional: Denies change in weight, fatigue, fever(s), headache(s), poor appetite or weakness Eyes Eyes: Denies blurry vision, change in vision, seeing flashes or spots in vision ENT HEENT: Denies dizziness, headache(s), loss taste/smell or sore throat Cardiovascular Cardiovascular: Denies chest pain, dizziness, dyspnea, irregular heart rhythm, leg edema, palpitations, rapid heart rate or vomiting Respiratory/Chest Respiratory/Chest: Denies chest tightness, cough, dyspnea or breast pain Gastrointestinal Gastrointestinal: Denies abdominal pain, anorexia, constipation, cramping, diarrhea, hemorrhoids, vomiting or weight changes Genitourinary Genitourinary: Denies dysuria, flank pain, genital lesions, genital pain, urinar y frequency or urinary urgency Musculoskeletal Musculoskeletal: Denies back pain, difficulty walking, joint pain, limited range of motion, muscle cramps or numbness Integumentary Integumentary: Denies lesions or unusual bruising Neurologic Neurologic: Denies abnormal movements, abnormal speech, dizziness, numbness, seizure-like activity or syncope Psychiatric Psychiatric: Denies anxiety, behavioral changes, change in appetite, change in libido, cognitive impairment, confusion, depression, difficulty concentrating, hallucinations or suicidal thoughts Endocrine Endocrinology: Denies excessive sweating, polydipsia or polyuria Hematologic/Lymphatic Hematologic/Lymphatic: Denies easy bleeding, easy bruising or lymphadenopathy Allergic/Immunologic Allergic/Immunologic: Denies itchy eyes, lip swelling, seasonal rhinorrhea, rhinitis, throat swelling, tongue swelling, eczemia, wheezing or asthma Vital Signs Vital Signs Vital Signs: 08/20/24 00:34 08/20/24 00:34 08/20/24 00:34 Temperature Temperature Source Pulse Rate 229 H 90 Respiratory Rate Blood Pressure BP Systolic BP Diastolic Pulse Ox 80 08/20/24 00:34 08/20/24 00:35 08/20/24 00:35 Temperature Temperature Source Pulse Rate 82 Respiratory Rate Blood Pressure 120/80 BP Systolic 120 BP Diastolic 80 Pulse Ox 99 08/20/24 00:35 08/20/24 00:35 08/20/24 00:35 Temperature 97.2 F L Temperature Source Temporal Pulse Rate Respiratory Rate 18 Blood Pressure BP Systolic BP Diastolic Pulse Ox 08/20/24 01:54 08/20/24 01:54 08/20/24 01:54 Temperature Temperature Source Temporal Pulse Rate 100 Respiratory Rate Blood Pressure 130/87 H BP Systolic 130 BP Diastolic 87 Pulse Ox 08/20/24 01:54 08/20/24 01:54 08/20/24 03:40 Temperature 97.0 F L Temperature Source Pulse Rate Respiratory Rate 18 Blood Pressure 106/65 BP Systolic 106 BP Diastolic 65 Pulse Ox 08/20/24 03:40 08/20/24 03:40 08/20/24 03:40 Temperature Temperature Source Pulse Rate 76 85 Respiratory Rate Blood Pressure BP Systolic BP Diastolic Pulse Ox 100 Weight Weight: 173 lb Body Mass Index (BMI) 27.1 Physical Exam Const alert, oriented x3, no apparent distress and healthy appearing General Appearance: cooperative; Negative for anxious HEENT normocephalic Face and Sinus: normal facial exam Eyes EOMs intact bilaterally and no scleral icterus General Eye: normal appearance of both eyes Neck full ROM and supple Lymph Lymphatic: no lymphadenopathy noted Chest Chest: abnormal inspection of the chest Resp normal respiratory effort Effort and Inspection: able to speak in complete sentences Cardio regular rate GI soft to palpation and non-tender Inspection: gravid Palpation: soft; Negative for tender external exam normal Amniotic Fluid: ROM+plus Back/Spine no CVA tenderness Extremity normal to inspection, full ROM and no clubbing, cyanosis or edema General Extremity: Negative for calf tenderness or edema Skin Lesions: no lesions Rashes: no rashes Psych mental status grossly normal Labs Labs Labs: Blood Type A POSITIVE Antibody Screen NEGATIVE Hct 30.6 % (37-47) L Hgb 9.8 g/dL (12.0-15.0) L Obstetrics Ultrasound Syphilis Total Ab Non-reactive Rubella IgG Antibody Reactive (Nonreactive) Hep Bs Antigen Non-Reactive (Nonreactive) Hepatitis C Antibody Non-Reactive (Nonreactive) Chlamydia DNA (MENG) Negative (Negative) N.gonorrhoeae DNA (MENG) Negative (Negative) HIV 1&2 Antibody Non-Reactive (Nonreactive) Glucose 1 Hr 50 gm 93 mg/dL (70-140) Miscellaneous Test Assessment & Plan (1) Marginal insertion of umbilical cord: COMMENT: Growth Q4wk @ 30 and 35 week d/t cost. 30 wk EFW 37%. AC 41% (2) Ovarian cyst affecting , antepartum: COMMENT: s/p obstetrician gynecologist 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 suspicious for endometrioma. plan repeat imaging 2-4 weeks , plan laparoscopic removal 6-8 weeks , discussed this may be done locally due to the low suspicion for malignancy. (3) Supervision of normal : QUALIFIERS: Normal : other normal Trimester: second trimester Qualified Code(s): Z34.82 - Encounter for supervision of other normal , second trimester COMMENT: PRR, , CARMELITA 08/17/24 girl PC: Shawna, : Same (4) : QUALIFIERS: Weeks of gestation: 39 weeks Qualified Code(s): Z3A.39 - 39 weeks gestation of COMMENT: anatomy nl, Declined ntd genetic/carrier testing. (5) Family history of ovarian cancer: COMMENT: mother still alive. discussed empower testing, handout given. PLAN: Plan Patient presents IAL, plan expectant management for , pitocin/AROM PRN if needed. Pain management: none . GBS negative . Management of any complications: none I have reviewed the [facility] and made any clinically relevant updates.
--- NOTE | 2024-08-20 03:44 | EX.PCM.OBVAG ---
Assessment & Plan (1) Marginal insertion of umbilical cord: COMMENT: Growth Q4wk @ 30 and 35 week d/t cost. 30 wk EFW 37%. 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 suspicious for endometrioma. plan repeat imaging 2-4 weeks , plan laparoscopic removal 6-8 weeks , discussed this may be done locally due to the low suspicion for malignancy. (3) Supervision of normal : QUALIFIERS: Normal : other normal Trimester: second trimester Qualified Code(s): Z34.82 - Encounter for supervision of other normal , second trimester COMMENT: PRR, , CARMELITA 08/17/24 girl PC: Shawna, : Same (4) : QUALIFIERS: Weeks of gestation: 39 weeks Qualified Code(s): Z3A.39 - 39 weeks gestation of COMMENT: anatomy nl, Declined ntd genetic/carrier testing. (5) Family history of ovarian cancer: COMMENT: mother still alive. discussed empower testing, handout given. Maternal Data Information CARMELITA Calculator Estimated Delivery Date Method Current WG Current Estimate 08/17/24 LMP (Certain) 40w 3d Other Estimates 08/15/24 Ultrasound #1 40w 5d Final CARMELITA: 08/17/24 Final CARMELITA Source: LMP Gestational age: 40 weeks 3 days Vaginal Delivery Maternal Presentation Maternal Presentation: Active Labor Vaginal Delivery Information Procedure Performed: Spontaneous Vaginal Delivery Surgeon/Practitioner: Rosaura Milton Date of Procedure: 08/20/24 Pre-Procedure Diagnosis: active labor @ 40 weeks 3 days Post-Procedure Diagnosis: active labor @ 40 weeks 3 days Type of anesthesia: None Time of Delivery: 03:17 Findings Description of procedure: Patient began pushing and delivered the head in the ALEKSANDRA presentation. The head was delivered atraumatically. The anterior and posterior shoulders delivered without complication followed by the rest of the and the infant was placed on the maternal abdomen. Delayed cord clamping was employed for approximately 60 seconds. Cord was clamped and cut and gentle traction was applied to the cord and the placenta delivered spontaneously immediately following it was noted to be intact with three-vessel cord. The perineum and vagina were inspected and noted to have a 2nd degree perineal laceration. This was repaired with a 2-0 vicryl. EBL was 100 cc. Patient and infant tolerated delivery well. 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
--- NOTE | 2024-08-20 03:47 | DCINST_ITS ---
Discharge Instructions Diet Discharge Diet: No restrictions DC O2, CPAP, BIPAP needs Home O2 Discharge instructions: No Dressing / Incision Discharge Activity: Return to Normal Activity, May Not Drive (while taking narcotic pain medications.) and May Shower May resume sexual activity in: 4-6 weeks Dressing / Incision Call your doctor if your incision/area has: Continuous Slow Oozing, Sudden Increased Bleeding, Increased Pain/ Swelling, Increased Redness and Foul Smelling Discharge Follow Up Care Please Follow Up With: Rosaura Milton DO When: Call [phone] to make an appointment with your doctor in 6 weeks. If you had elevated blood pressure or 4th degree laceration, you will need to be seen in 2 weeks. Test Results: Test results from this visit will be discussed in further detail at your follow- up appointment, if applicable. Discharge Plan Admission Admit Date/Time: 08/20/24 00:51 Attending Provider: Rosaura Milton Primary Care Provider: Vinny Cantu Discharge Orders/Prescriptions Prescriptions: No Action Classic 28 mg iron- 800 mcg tablet 1 tab PO DAILY Referrals / Follow Up: Vinny Cantu MD [Primary Care Provider] -
[2024-08-20] MEDS: Oxytocin 15 Units/NS 250ml 15 UNITS/250 ML IV.SOLN 83 UNITS IV (04:15)
[2024-08-20] MEDS: Ibuprofen 600 MG Tablet PO ×2 (04:33→10:27)
[2024-08-20] MEDS: Acetaminophen 500 MG Tablet 1000 MG PO (16:49)
[2024-08-21 00:01] VITALS: BP 122/73; PULSE 71; RESP 16; TEMP 36.3
[2024-08-21] MEDS: Ibuprofen 600 MG Tablet PO (01:47)
--- NOTE | 2024-08-21 07:52 | PN.OBGYN_ITS ---
Subjective Subjective Patient doing well without complaints. Tolerating PO. Ambulating and voiding without difficulty. Feeding well. Denies chest pain, shortness of breath, calf pain/swelling, fevers, chills, lightheadedness. Objective Data Objective Data Vital Signs: Vital Signs Temp Pulse Resp BP Pulse Ox O2 Del Method 97.3 F L 71 16 122/73 H 97 Room Air 08/21/24 00:01 08/21/24 00:01 08/21/24 00:01 08/21/24 00:01 08/20/24 19:39 08/21/24 00:01 Oxygen Delivery Method Room Air Weight: 173 lb Body Mass Index (BMI) 27.1 Intake & Output: Intake and Output for Last 24 Hours 08/19/24 08/20/24 08/21/24 23:59 23:59 23:59 Intake Total 1166.05 / 1166.05 Output Total 900 / 900 Balance 266.05 / 266.05 Lab / Micro Data 08/20/24 01:10 Physical Exam Const alert and oriented x3 HEENT normocephalic Eyes PERRL Neck full ROM Resp normal respiratory effort GI soft to palpation GI Narrative: FF below U Assessment & Plan (1) Spontaneous vaginal delivery: COMMENT: 08/20/24 JV girl Sally (2) Ovarian cyst affecting , antepartum: COMMENT: 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 suspicious for endometrioma. plan repeat imaging 2-4 weeks , plan laparoscopic removal 6-8 weeks , discussed this may be done locally due to the low suspicion for malignancy. PLAN: Plan s/p PPD # 1 1. routine post delivery care 2. breast feeding- support given 3. rh positive 4. rubella immune 5. US to recheck cyst in 2-4 wk 6. home today
[2024-08-21 09:00] VITALS: BP 111/70; PULSE 102; RESP 16; TEMP 36.1; O2SAT 97
== END 2024-08-21 10:00 | disposition home or self-care (01) | DRG 807 ==
LOC: WPOUT 08-22 09:06 → WP 08-22 09:07
PROVIDERS: Admitting Provider Obstetrics & Gynecology; PCP Family Medicine; Referring Provider Obstetrics & Gynecology; Visit Provider Obstetrics & Gynecology
DX: O42.92 Full-term premature rupture of membranes, unspecified as to length of time between rupture and onset of labor (principal); Z37.0 Single live birth; N83.209 Unspecified ovarian cyst, unspecified side; O34.83 Maternal care for other abnormalities of pelvic organs, third trimester; O43.193 Other malformation of placenta, third trimester; O70.1 Second degree perineal laceration during delivery; Z3A.40 40 weeks gestation of pregnancy; Z80.41 Family history of malignant neoplasm of ovary
CPT/HCPCS: 59025; 59050; 84112; 85025; 86780; 86850; 86900; 86901; 99221; G0378

== ENCOUNTER → 2024-09-11 | Outpatient (CLI) | payer OTHER, SELFPAY ==
--- NOTE | 2024-09-11 14:26 | US_ITS ---
PROCEDURE: TRANSVAGINAL NON- TECHNIQUE: Transabdominal and transvaginal pelvic ultrasound COMPARISON: None. FINDINGS: Measurements: Uterus: 11.3 cm x 10.5 cm x 6.5 cm. Endometrial Thickness: 4 mm Right Ovary: 2.6 cm x 1.7 cm x 2.1 cm. Left Ovary: 7.1 cm x 4.8 cm x 5.3 cm Uterus: Normal size, myometrial echotexture, and contour. Nabothian cysts. Endometrium: Fluid noted within the endometrial canal. Right ovary: Normal size and echotexture. Blood flow is documented to the ovary. Left ovary: 5.7 cm x 4.1 cm x 2.9 cm left ovarian cyst with internal echoes. Blood flow is documented to the ovary. Mild fluid noted in the cul-de-sac. US/Transvaginal Non- IMPRESSION: Left ovarian cyst with internal echoes likely hemorrhagic ovarian cyst or endom etrioma. Follow-up is suggested to document resolution. Fluid noted within the endometrial canal. Mild fluid noted in the cul-de-sac. Reading Location: [id number]
== END | disposition home or self-care (01) ==
PROVIDERS: PCP Family Medicine; Referring Provider Nurse Practitioner Women's Health; Visit Provider Nurse Practitioner Women's Health
DX: N83.209 Unspecified ovarian cyst, unspecified side (principal)
CPT/HCPCS: 76830

== ENCOUNTER → 2024-11-01 | Outpatient (CLI) | payer OTHER, SELFPAY ==
--- NOTE | 2024-11-01 15:24 | US_ITS ---
PROCEDURE: PELVIC W/ TRANSVAGINAL REASON FOR EXAM: CYST FOLLOW UP TECHNIQUE: Transabdominal and transvaginal pelvic ultrasound COMPARISON: Comparison is made with prior study dated September 11, 2024. FINDINGS: Measurements: Uterus: 7.2 cm x 6.6 cm x 4.2 cm with a volume of 103 mL Endometrial Thickness: 2 mm. It is hyperechoic. Right Ovary: 2.8 cm x 2.6 cm x 1.7 cm with a volume of 7.11 mL. Left Ovary: 6.4 cm x 5.1 cm x 3.4 cm with a volume of 47 mL. There is a 4.3 cm 4.1 cm 2.9 cm cyst with internal echoes. There is a 5 mm x 5 mm x 3 mm mural nodule within it. Transvaginal sonography was performed to better visualize the endometrium. TRANSVAGINAL: Uterus: Unremarkable Endometrium: Unremarkable Right ovary: Unremarkable Left ovary: 4.3 cm 4.1 cm x 2.9 cm cystic structure in the left ovary with internal echoes as well as a mural nodule measuring 5 mm x 5 mm x 3 mm. Clinical correlation recommended. Other adnexal findings: None. Cul-de-sac: No free intraperitoneal fluid identified. Tenderness: US/Pelvic w/ Transvaginal IMPRESSION: Persistent complex cyst in the left adnexa. There has decreased slightly in si ze as compared to prior study. Reading Location: [place] [id number]
== END | disposition home or self-care (01) ==
LOC: US 15:23
PROVIDERS: PCP Family Medicine; Referring Provider Obstetrics & Gynecology; Visit Provider Obstetrics & Gynecology
DX: N83.202 Unspecified ovarian cyst, left side (principal)
CPT/HCPCS: 76830; 76856

== ENCOUNTER 2024-12-04 11:24 | Day surgery (SDC) | payer OTHER, SELFPAY ==
[2024-12-04] VITALS (9 sets, daily range): BP systolic 81–109; BP diastolic 49–87; PULSE 62–104; RESP 14–16; TEMP 36.4–36.9; O2SAT 81–100; BMI 22.1
--- NOTE | 2024-12-04 11:10 | PCM.HP.BLA ---
History and Physical Date of Admission: 12/04/24 [facility] [address], [address] [place] [address] OFFICE VISIT Date of Service: 11/09/24 MR#: [id number] Acct: [id number] Name: RUTHIE OJEDA Rep #: [id number] : 1990 Provider: Dr. Loretta Chand MD Age/Sex: 33/F Location: [facility] Status: Signed Intake Vital Signs 10/04/2514:33 11/09/2510:05 Height 5 ft 7 in 5 ft 7 in Weight: 149 lb 6 oz 142 lb 6 oz BMI 23.3 22.3 BP 115/78 117/72 Intake Visit Reasons: U/S RESULTS Certified Control Systems Technician Required: No Is patient in pain?: No Allergies No Known Allergies Allergy (Verified 11/09/24 11:07) Medications ?Medication ?Instructions ?Recorded ?Confirmed ?Type NK 10/04/24 11/09/24 History Post menopausal: No Patient : No : Yes [facility] Medical History Supervision of normal Marginal insertion of umbilical cord Left ovarian cyst Anemia Surgical History [place] teeth extracted Family History Mother Ovarian cancer Thyroid disorder Social History adopted: No household members: spouse and children number of children: 1 current occupational status: unemployed 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 current occupational exposures/hazards: No pets and animals: No history of recent travel: No sexually active: Yes Smoking Status: Never smoker alcohol intake: never substance use type: does not use well-balanced diet: daily or most days caffeine: Yes (rarely) eating out: 1-3 times/week during the past year weight has: remained stable what type of physical activity do you participate in: bicycling jung/catholic: Adventism seatbelt use: always do you feel safe at home: Yes additional social history: - 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 it has slightly decreased in size but still present. Maintenance Engineer Onc had recommended removal previously, she has a family history of ovarian cancer. she denies any pelvic pain or pressure. the cyst is on the left size and may be an endometrioma. Female Reproductive History Menopausal Symptoms: No night sweats History 2 Elective abortions Hx Para 1 Spontaneous abortions Hx # Term Pregnancies 2 Ectopic pregnancies Hx # Pregnancies Multiple births # of living children 2 Past Pregnancies Del. Date Name GA/Weeks Outcome Route Bth Weight Gen Labor Lgth Anesthesia Del Locatn Provider FOB 05/20/22 Shawna 41 live - full term 7lbs 6oz Female epidural [facility] Lorettapraveen Waldronaraseli Wallace 08/20/24 Sally 40 live - full term 8lb 1oz Female none [facility] DOV [facility] Delivery Date: 05/20/22 Last Updated by: Felisa Dan see problem list for complications, nd sm 41 iol postdates girl . Delivery Date: 08/20/24 Last Updated by: Eliza Elizondo RN See problem list for complications ROS Const Constitutional: Denies fatigue, night sweats, weight gain or weight loss ENT ENT: Reports system reviewed and no additional complaints, except as documented Cardio Card: Denies chest pain Resp Resp: Denies cough or dyspnea GI GI: Reports as per HPI; Denies abdominal pain, constipation, nausea or vomiting : Denies nipple discharge, urinary frequency, urinary incontinence, urinary hesitancy, urinary urgency, vaginal discharge, vaginal dryness, vaginal odor or vaginal pruritus Musc Musc: Denies arthralgias, back pain or muscle weakness Skin Skin/Breast: Denies alopecia, change in hair, dry skin, breast mass, breast pain, breast skin changes or nipple discharge Neuro Neuro: Reports system reviewed and no additional complaints, except as documented Psych Psych: Reports system reviewed and no additional complaints, except as documented Endo Endo: Denies cold intolerance, excessive sweating, heat intolerance or polydipsia Ab/Lymph Hematologic/Lymphatic: Denies easy bleeding, Denies easy bruising and Denies lymphadenopathy Exam Const General: cooperative, healthy appearing, comfortable and no acute distress Orientation: alert HENMT Head: normal to inspection and normocephalic Ears: hearing grossly normal bilaterally and external ears normal Nose: external nose normal and nares normal Face and sinus: normal facial exam Neck Neck: normal visual inspection and no lymphadenopathy Thyroid: thyroid normal Chest Chest palpation & inspection: normal inspection of the chest Resp Effort & Inspection: normal respiratory effort Auscultation: clear to auscultation bilaterally Cardio Rate: regular rate Rhythm: regular rhythm Heart Sounds: S1 normal and S2 normal GI Inspection: normal to inspection and non-distended Palpation: soft and no hepatosplenomegaly Musc Other: gross motor intact no deficits, full bilateral strength Skin General: no rashes or lesions noted Neuro General: patient alert, patient awake, moves all extremities and no focal motor deficits Motor: muscle tone normal throughout Extrem General: normal to inspection and no pedal edema Psych Appearance: grossly normal Mental Status: mental status grossly normal Affect: normal affect Speech and Movement: speech and movement normal Coding Level of Care Code Off vis,est,level 4 Diagnoses Ovarian cyst N83.209 Assessment and Plan Assessment and Plan (1) Ovarian cyst: Status: Acute Comment: s/p retail maintenance technician onc consult, present the entire , decreased in size but still persistent plan laparoscopic removal as recommended by retail maintenance technician onc. plan ovarian cystectomy. Plan After discussing the patient's diagnosis and treatment plan options, patient wishes to proceed with surgical management. I have discussed with the patient the risks, benefits, and alternatives of the procedure which include but are not limited to risks of anesthesia, bleeding, infection, possible damage to bowel, bladder, or surrounding vasculature which could lead to additional surgery to evaluate any complications. Patient agrees to procedure and wishes to proceed. ACOG/uptodate references given for additional information regarding procedure. UPDATE- I have seen the patient and performed any clinically relevant updates to the history and physical exam. Loretta Chand MD
[2024-12-04 11:51] LABS: Internal QC Validated? YES +Cl - CLEAR BKGD; Pregnancy, Urine Negative Negative
[2024-12-04] MEDS: Lactated Ringers 1,000 ML 15 ML IV (12:19)
[2024-12-04 12:22] LABS: Absolute Neutrophil Count 2.9 X10^3/uL (2.0-7.7); Basophil# 0.05 X10^3/uL; Basophil% 0.8 % (0-1); Eosinophil# 0.24 X10^3/uL; Eosinophils% 3.7 % (0-5); Hematocrit 34.8 % (37-47); Hemoglobin 11.5 g/dL (12.0-15.0); Lymphocyte % 42.9 % (19-41); Mean Corpuscular Hgb 27.1 pg (27.0-32.0); Mean Corpuscular Volume 81.9 fL (81-99); Mean Platelet Vol. 9.2 fl (6.2-12.0); Monocyte# 0.51 X10^3/uL; Monocyte% 7.8 % (0-10); NRBC Flagged by Analyzer 0 % (0-5); Neutrophil # 2.91 X10^3/uL (2.7-7.7); Neutrophil % 44.6 % (47-70); Platelet Count 289 K/mm3 (150-450); RBC Distribution Width CV 14.9 % (11.6-14.6); Red Blood Count 4.25 M/mm3 (4.2-5.4); White Blood Count 6.5 K/mm3 (4.4-11.0)
--- NOTE | 2024-12-04 12:47 | PCM.PRE.AN2 ---
ASA Classification* ASA Classification ASA Classification: 1 Assessment & Plan Anesthesia* Anesthesia Assessment Anesthesia Assessment: Discussed sedation and/or anesthesia options, risks, benefits, and alternatives with patient/parents/legal guardian/POA. Questions invited. The patient/parents/legal guardian/POA seems to understand and agrees to proceed with anesthesia plan. Reviewed the physical assessment, medical history, allergy history and patient home medications list prior to surgery/procedure/anesthetic and documented any changes. Performed airway and anesthesia risk assessments. Anesthesia Type Anesthesia Type: General History Source History Obtained from:: Patient and Chart Anesthesia Focused Assessment* Temperature: 97.6 F Pulse Rate: 78 Blood Pressure: 109/79 Respiratory Rate: 16 Pulse Ox: 99 Oxygen Delivery Method: Room Air Airway Assessment Mouth opens: >3 cm Mallampati Score: II Teeth Condition: Intact Neck Range of motion (ROM): Full ROM Focused Labs Anesthesia Preop lab: CBC WBC 6.5 K/mm3 (4.4-11.0) 12/04/24 12:16 12/04/24 RBC 4.25 M/mm3 (4.2-5.4) 12/04/24 12:16 12/04/24 Hgb 11.5 g/dL (12.0-15.0) L 12/04/24 12:16 12/04/24 Hct 34.8 % (37-47) L 12/04/24 12:16 12/04/24 Plt Count 289 K/mm3 (150-450) 12/04/24 12:16 12/04/24 CHEMISTRY Potassium 3.6 mmol/L (3.5-5.1) 10/14/18 07:41 10/14/18 Sodium 141 mmol/L (136-145) 10/14/18 07:41 10/14/18 BUN 12 mg/dL (7-18) 10/14/18 07:41 10/14/18 Creatinine 0.81 mg/dL (0.55-1.02) 10/14/18 07:41 10/14/18 Glucose 87 mg/dL (74-106) 10/14/18 07:41 10/14/18 TSH 2.22 uIU/mL (0.358-3.74) 11/07/21 09:03 11/07/21 COAG Urine Test Negative Negative 12/04/24 11:40 12/04/24 Pre-Assessment Diagnosis/Proposed Procedure Planned Operative Procedure(s): (L) Laparoscopic, Left Ovarian Cystectomy Anesthesia History Anesthesia History - tool dispatcher: Anesthesia History - tool dispatcher Hx Hospitalization Yes: [facility] 08/202411/20/24 13:23 Any Problems With Anesthesia No 11/20/24 13:23 Cholinesterase deficiency No 11/20/24 13:23 You/Your Family Experience No 11/20/24 13:23 fever (hyperthermia) with Relationship Recent Exposure to Contagious No 12/04/24 12:13 Disease Does patient have nerve No 11/20/24 13:23 stimulator Patient instructed to have device shut off --Does patient have Pacemaker No 12/04/24 12:13 or ICD? When Was Last Pacemaker Check QUESTION #4 FULL TEXT: You/Your Family Experience fever (hyperthermia) with Anesthesia Last Oral Intake Last Oral intake: Last Oral Intake NPO since 00:00 12/04/24 12:13 Meds taken in AM with sips of No 12/04/24 12:13 water? Meds patient instructed to take am of surgery PONV PONV - tool dispatcher: PONV - tool dispatcher Female No 11/20/24 13:23 HX of Motion Sickness No 11/20/24 13:23 HX of N/V After Surgery No 11/20/24 13:23 Non-Smoker Yes 11/20/24 13:23 Duration of Surgery greater Yes 11/20/24 13:23 than 60 minutes Number of Risk Factors 2 11/20/24 13:23 PONV Score Moderate Risk 11/20/24 13:23 Height & Weight Height & Weight: Anesthesia: Height & Weight Height 5 ft 7 in 12/04/24 12:13 Weight: 64 kg 12/04/24 12:13 Body Mass Index (BMI) 22.1 12/04/24 12:13 Respiratory Assessment Respiratory Assessment - tool dispatcher: Respiratory Tract Infection Hx - tool dispatcher Hx Respiratory Tract Infection No 11/20/24 13:23 STOP Sleep Apnea STOP Sleep Apnea - tool dispatcher: STOP Sleep Apnea - tool dispatcher Hx Hypertension No 11/20/24 13:23 Hx Sleep Apnea No 11/20/24 13:23 CPAP BIPAP Do you snore loudly (louder No 11/20/24 13:23 than talking or can be heard Do you often feel tired/ No 11/20/24 13:23 fatigued/ sleepy during daytime? Has anyone observed you stop No 11/20/24 13:23 breathing during sleep? STOP Results Negative 11/20/24 13:23 QUESTION #5 FULL TEXT : Do you snore loudly (louder than talking or can be heard through closed doors)? Tobacco Use History Tobacco Use History - tool dispatcher: Tobacco Use History - tool dispatcher Tobacco Use Smoking Status Never smoker 11/20/24 13:23 Hx Tobacco Use No 11/20/24 13:23 Years Smoking Packs Smoked per Day Smoking Cessation Date was within the last 15 years Hx Smoking Cessation Date Hx Smoking Cessation Counseling Hematologic Medial History Hematologic Hx - tool dispatcher: Hematologic Medical Hx - automatic winder operator Hx of Blood Transfusion No 11/20/24 13:23 Hx of Transfusion in last 3 No 11/20/24 13:23 Months Date of Last Transfusion (if within last 3 months) Ever experience any problems No 11/20/24 13:23 with transfusion(s)? Specify any problems Hx of Preganancy in last 3 Yes 11/20/24 13:23 Months Nurse Filling Out Transfusion [facility]LE[facility] 11/20/24 13:23 & Questions: Date: 11/20/24 11/20/24 13:23 Time: 13:29 11/20/24 13:23 Patient unable to answer at this time (ie. confused, unrespo /Reproduction History /Reproductive History - tool dispatcher: /Reproductive Hx- tool dispatcher Hx Now Gestational Age (in weeks): EDC: Hx Hx Para Hx Section SAB Yes 11/09/24 11:08 Active Medications Active Medications: Current Medications Generic Name Dose Route Start Last Admin Trade Name Freq PRN Reason Stop Dose Admin Lactated Ringer's 1,000 mls @ 15 mls/hr 12/04/24 11:45 12/04/24 12:19 IV 15 mls/hr .Q48H SILVA Administration PFSH Medical History Wears glasses Wears contact lenses Low iron Syncope Non-smoker Left ovarian cyst Marginal insertion of umbilical cord Supervision of normal Anemia Home Medications ?Medication ?Instructions ?Recorded ?Last Taken ?Type NK 10/04/24 Unknown History Allergy/AdvReac Type Severity Reaction Status Date / Time No Known Allergies Allergy Verified 12/04/24 12:20 Family History Mother Ovarian cancer Thyroid disorder Surgical History [place] teeth extracted Social History adopted: No household members: spouse and children number of children: 1 current occupational status: unemployed 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 current occupational exposures/hazards: No pets and animals: No history of recent travel: No sexually active: Yes Smoking Status: Never smoker alcohol intake: never substance use type: does not use well-balanced diet: daily or most days caffeine: Yes (rarely) eating out: 1-3 times/week during the past year weight has: remained stable what type of physical activity do you participate in: bicycling jung/tenriism: Christianity seatbelt use: always do you feel safe at home: Yes 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
--- NOTE | 2024-12-04 13:00 | CYST_PTH ---
PATIENT: RUTHIE OJEDA LOC: [facility] [place] U#:[id number] AGE/SX: 33/ ROOM: RE12/04/[address]: Dr. Loretta Chand MD : 1990 BED: DIS: 12/04/2024 SPEC #: [id number] RECD: 12/05/24 09:36 STATUS: LEANNA REAniya #: [id number] LEORA: 12/04/24 13:[address]: Loretta Chand DEPT: SURGICAL PATHOLOGY RECD BY: Oli Reid ENTERED: 12/05/24 10:44 SP TYPE: Cyst OTHR DR: Dr. Vinny Cantu MD Tissues: A - OVARIAN CYST Procedures: Surgery Specimen Level IV HEADER OPERATION: Laparoscopic left ovarian cystectomy PRE-OP DIAGNOSIS: Ovarian cyst, endometriosis TISSUE SUBMITTED: A- Cyst wall of endometrioma MICROSCOPIC DIAGNOSIS A. Left ovary, cyst wall, cystectomy: * Endometrioma MICROSCOPIC DESCRIPTION Slides are reviewed. GROSS DESCRIPTION A. Received in formalin in a container labeled with the patient's name, date of , and cyst wall of endometrioma is a 5.7 x 2.5 x 0.2 cm membranous fragment of pink-jin soft tissue. 1 surface is predominantly smooth and glistening, grossly consistent with outer aspect of cyst (inked black). The opposing surface is haskins with adherent red-brown hemorrhagic material (grossly consistent with internal aspect of cyst). There is an average wall thickness of 0.2 cm. No firm or papillary areas are identified. No typical ovarian parenchyma is discovered. Railway Traction Line Worker sections are submitted as follows:A1. Roll of cyst wallA2. Full-thickness sections [facility] 12-05-2024 CPT:10356
--- NOTE | 2024-12-04 13:57 | OP.PCM_ITS ---
Multi Select Codes Urinary/Genital Urinary/Genital CPT Codes: 71436 Laproscopic BS/O Operative Report (Standard) Operative Information Date of Procedure: 12/04/24 Pre-Operative Diagnosis: see problem list Post-Operative Diagnosis: same plus endometriosis left endometrioma Surgery/Procedure Performed: laparoscopic ovarian cystectomy vehicle sales professional: Yes Hourly Sign Language Interpreter: Geoffrey Sumner Tasks completed by family service assistant: Opening & closing, Altering tissue and Insert Trochanter Additional social worker assistant?: No Type of Anesthesia: General RN Documented Start/Stop Times: Operation Date: 12/04/24 13:00 Case Time Into Pre-Op 12/04/24 11:29 Anesthesia Start 12/04/24 13:42 Into Room 12/04/24 13:42 Out of Pre-Op 12/04/24 13:50 Procedure Start 12/04/24 14:09 Procedure End 12/04/24 14:46 Anesthesia End 12/04/24 14:59 Out of Room 12/04/24 14:59 Into Recovery 12/04/24 15:00 Into Phase II Recovery 12/04/24 15:33 Out of Recovery 12/04/24 15:33 Out of Phase II 12/04/24 16:39 Procedure Start Time: 14:09 Procedure Stop Time: 14:46 Select all DRAINS/GRAFTS/IMPLANTS that apply: None Estimated Blood Loss: 25 Specimen collected: Yes Description of specimen(s) removed: endometrioma left ovarian cyst wall Description of surgery: Patient was taken in the operating room and was placed under general anesthesia was prepped and draped in normal sterile fashion in the dorsal lithotomy position. Bladder was drained of clear urine and SCDs were on preoperatively. Uterus was sounded and a uterine manipulator was placed after dilating. Attention was then paid to the abdominal portion of the procedure and the umbilicus was elevated with towel clamps and injected with Marcaine and after a 5 mm incision was made and the Veress needle was entered into the abdomen confirmed to be intra-abdominal with a low opening pressure of less than 5 mmHg. Abdomen was insufflated with CO2 gas and a 5 mm optical trocar was placed under direct visualization. Left and right lower quadrant 5 mm ports were placed under direct visualization. Uterus was well visualized and upon inspection of the pelvis and an implant of endometriosis was noted in the left ovarian fossa which was cauterized and desiccated. No other implants were noted throughout the abdomen. Left ovary was noted to be significantly enlarged with the an abnormal appearing cyst suspicious for an endometrioma. Incision was made across the top of the cyst and it ruptured and expressed chocolate colored fluid from the cyst. Cystectomy was performed by shelling out the cyst wall and then removing it leaving only normal-appearing ovary. The abdomen was copiously irrigated and the base of the ovary cauterized and Surgiflo placed over it. Excellent hemostasis was noted in the pelvis. Liver and upper abdomen were visualized notably within normal limits and no other gross abnormalities were seen in the abdomen. All instruments removed from the abdomen after gas was desufflated. Port sites were closed with 3-0 Monocryl Steri's and op sites were applied. All instruments removed from the vagina and patient was awoken and taken recovery in stable condition. Surgical Findings: left ovarian fossa endometriosis implant- dessicated. left ovarian endoemtrioma Complications Complications: No
--- NOTE | 2024-12-04 13:58 | PCM.DC ---
Discharge Instructions Diet Discharge Diet: No restrictions DC O2, CPAP, BIPAP needs Home O2 Discharge instructions: No Dressing / Incision Discharge Activity: Return to Normal Activity, May Not Drive ( while taking narcotic pain meds, when pain free), May Shower and May Take a Tub Bath (in 7 days) May resume sexual activity in: 1 week Weight Bearing Status: Full weight bearing Dressing / Incision Call your doctor if your incision/area has: Continuous Slow Oozing, Sudden Increased Bleeding, Increased Pain/ Swelling, Increased Redness and Foul Smelling Discharge Call your doctor if you observe: Fever of 101 or Higher, Using more than 1 pad per hour, Shortness of breath, Chest pain and Uncontrolled pain Suture Line Care: Avoid Pulling/Pushing and Avoid Pinching/Bending Remove Dressing in: 1 week (if present) Cleanse incision/area with: Soap & Water and Keep Dressing Clean & Dry Follow Up Care When: Call to make an appointment with your doctor for a fu/incision check in 1-2 weeks. Test Results: Test results from this visit will be discussed in further detail at your follow-up appointment, if applicable. Discharge Plan Admission Attending Provider: Loretta Chand Primary Care Provider: Vinny Cantu Instructions Print Language: [place] Discharge Orders/Prescriptions Prescriptions: New oxycodone-acetaminophen [Percocet] 5-325 mg tablet 1 tab PO Q4H PRN (Reason: pain) 7 Days Qty: 20 0RF naproxen 500 mg tablet 500 mg PO BID PRN PRN (Reason: Pain) Qty: 30 1RF Referrals / Follow Up: Vinny Cantu MD [Primary Care Provider] - Disposition Disposition (needs filled in before D/C Order can be placed): Home, Self Care
[2024-12-04] MEDS: Bupivacaine 0.25% 30 ML Vial (14:15)
--- NOTE | 2024-12-04 17:32 | PCM.POST.ANE ---
Anesthesia: Postop Eval I Current Vital Signs Temperature: 98.4 F Pulse Rate: 81 Blood Pressure: 107/87 Respiratory Rate: 16 Pulse Ox: 81 Oxygen Delivery Method: Room Air Assessment Airway patent: Yes Spontaneous unlabored respirations: Yes nausea: No Vomiting: No Anesthesia Complication: No Fluid Hydration Crystalloid volume administer (ml): 1,000 Total IV fluid infused: 1,000 Progress Note Anesthesia document: Postop Eval 1 completed: Yes
--- NOTE | 2024-12-04 19:14 | POSTOPAN2_ITS ---
Anesthesia Postop Eval I Sum Postop Eval Completion status Anesthesia document: Postop Eval 1 completed: Yes Anesthesia Postop Eval I Summary Anesthesia Postop Eval I Summary: Anesthesia Postop Eval I: Assessment Summary Airway patent Yes 12/04/24 17:32 LIQUID NATURAL GAS PLANT OPERATOR.ACAR Spontaneous unlabored Yes 12/04/24 17:32 LIQUID NATURAL GAS PLANT OPERATOR.ACAR respirations Mental status nausea No 12/04/24 17:32 LIQUID NATURAL GAS PLANT OPERATOR.ACAR Vomiting No 12/04/24 17:32 LIQUID NATURAL GAS PLANT OPERATOR.ACAR Anesthesia Postop Eval I: Fluid Summary Crystalloid volume administer 1,000 12/04/24 17:32 LIQUID NATURAL GAS PLANT OPERATOR.ACAR (ml) Colloids volume administered ( ml) Blood Product volume administered (ml) Total IV fluid infused 1,000 12/04/24 17:32 LIQUID NATURAL GAS PLANT OPERATOR.ACAR Anesthesia Postop Eval I: Summary Notes Anesthesia Complication No 12/04/24 17:32 LIQUID NATURAL GAS PLANT OPERATOR.ACAR Anesthesia Complication Comment: Post-operative progress note Anesthesia: Postop Eval II Evaluation Mental status: Awake and Calm Pain Level: 2 nausea: No Vomiting: No Complications Anesthesia Complication: No
--- NOTE | 2024-12-04 19:14 | PCM.POSTANE2 ---
Anesthesia Postop Eval I Sum Postop Eval Completion status Anesthesia document: Postop Eval 1 completed: Yes Anesthesia Postop Eval I Summary Anesthesia Postop Eval I Summary: Anesthesia Postop Eval I: Assessment Summary Airway patent Yes 12/04/24 17:32 WATER SUPERINTENDENT.ACAR Spontaneous unlabored Yes 12/04/24 17:32 WATER SUPERINTENDENT.ACAR respirations Mental status nausea No 12/04/24 17:32 WATER SUPERINTENDENT.ACAR Vomiting No 12/04/24 17:32 WATER SUPERINTENDENT.ACAR Anesthesia Postop Eval I: Fluid Summary Crystalloid volume administer 1,000 12/04/24 17:32 WATER SUPERINTENDENT.ACAR (ml) Colloids volume administered ( ml) Blood Product volume administered (ml) Total IV fluid infused 1,000 12/04/24 17:32 WATER SUPERINTENDENT.ACAR Anesthesia Postop Eval I: Summary Notes Anesthesia Complication No 12/04/24 17:32 WATER SUPERINTENDENT.ACAR Anesthesia Complication Comment: Post-operative progress note Anesthesia: Postop Eval II Evaluation Mental status: Awake and Calm Pain Level: 2 nausea: No Vomiting: No Complications Anesthesia Complication: No
== END 2024-12-04 16:40 | disposition home or self-care (01) ==
LOC: SDC 11:25 → AC 11:27
PROVIDERS: Anesthesiology; PCP Family Medicine; Referring Provider Obstetrics & Gynecology; Visit Provider Obstetrics & Gynecology
PROC: (CPT 58720; principal; 2024-12-04 12:45)
DX: N80.122 Deep endometriosis of left ovary (principal); Z80.41 Family history of malignant neoplasm of ovary
CPT/HCPCS: 58662; 81025; 85025; 86850; 86900; 86901; 88305; J2405

== ENCOUNTER → 2025-07-22 | Outpatient (CLI) | payer OTHER, SELFPAY ==
[2025-07-26 13:08] LABS: HPV APTIMA, High Risk Negative (Negative)
== END | disposition home or self-care (01) ==
LOC: LABSPEC 16:27
PROVIDERS: PCP Family Medicine; Visit Provider Obstetrics & Gynecology
DX: Z12.4 Encounter for screening for malignant neoplasm of cervix (principal)
CPT/HCPCS: 87624; 88175; G0145